=== PATIENT | male | born 1965 | race Caucasian/White ===

== ENCOUNTER 2024-12-26 12:05 | Outpatient (CLI) | payer OTHER ==
[~2024-12-26 12:05] MED LIST: DICLOFENAC POTA50 MG PO
== END 2024-12-26 12:14 | disposition home or self-care (01) ==
LOC: RAD 12:05
PROVIDERS: ATTEND Physical Medicine & Rehabilitation
DX: M25.562 Pain in left knee (principal); S56.912A Strain of unspecified muscles, fascia and tendons at forearm level, left arm, initial encounter

== ENCOUNTER 2025-02-01 10:08 | Outpatient (CLI) | payer OTHER | END 2025-02-01 10:15 | disposition home or self-care (01) | LOC: MRI 10:08 | PROVIDERS: ATTEND Physical Medicine & Rehabilitation | DX: M25.562 Pain in left knee (principal) | CPT/HCPCS: 73721 ==